=== PATIENT | female | born 1995 | race Hispanic/Latino ===

== ENCOUNTER 2022-10-09 05:57 | Day surgery (SDC) | payer MEDICARE ==
[2022-10-06 17:43] VITALS: BP 142/73
[~2022-10-09] VITALS: Ht 154.9 cm; Wt 111.5 kg
[~2022-10-09 05:57] MED LIST: ALPR2TAB7 PO; LABE100T7 PO; LISPRO SQ
[2022-10-09 06:15] VITALS: BP 132/89
[2022-10-09] MEDS ORDERED: PROPOFOL 10 MG/ML 20ML VIAL IV ONE (08:21)
== END 2022-10-09 09:20 | disposition home or self-care (01) ==
LOC: ENDO 05:57 → DAH 05:57 → ENDO 09:20
PROVIDERS: ATTEND Surgery
DX: K21.9 Gastro-esophageal reflux disease without esophagitis (principal); Z20.822 Contact with and (suspected) exposure to COVID-19; I10 Essential (primary) hypertension; E11.9 Type 2 diabetes mellitus without complications; E66.01 Morbid (severe) obesity due to excess calories; Z82.49 Family history of ischemic heart disease and other diseases of the circulatory system; Z83.3 Family history of diabetes mellitus; Z68.42 Body mass index [BMI] 45.0-49.9, adult
CPT/HCPCS: 84703; 87426; 36415; 71045; 43235; J2704; A4620; A4215 ×2; A4223; A4657 ×3; A7002; A4222; A4221; A4663; J7030; A4606